=== PATIENT | female | born 1980 | race Caucasian/White ===

== ENCOUNTER 2017-02-03 18:07 | Emergency (ER) | payer BC | END 2017-02-03 20:14 | disposition home or self-care (01) | LOC: CED 18:07 → CFTX 18:07 → CED 20:00 → CFTX 20:14 | DX: S86.001A Unspecified injury of right Achilles tendon, initial encounter (principal); Y92.830 Public park as the place of occurrence of the external cause; F32.9 Major depressive disorder, single episode, unspecified; X50.1XXA Overexertion from prolonged static or awkward postures, initial encounter; Y93.39 Activity, other involving climbing, rappelling and jumping off | CPT/HCPCS: 29515; 99283 ==